=== PATIENT | female | born 1935 | race African-American/Black ===

== ENCOUNTER 2018-11-13 15:51 | Emergency (ER) | payer OTHER ==
[~2018-11-13] VITALS: Ht 149.9 cm; Wt 80.7 kg
--- OUTSIDE RECORDS SUMMARY | 2018-11-13 15:53 | XMS REPORT ---
Author Author Katharine Gallegos Organization [employer] Address Unknown Phone Unavailable Care Team Providers Care Architectural Job Captain Name Role Phone Katharine Gallegos CP Unavailable Allergies No Known Allergies Problems Problem Type Condition Code Onset Dates Condition Status Problem Coronary artery disease involving [place] coronary artery of [place] heart without angina pectoris I25.10 Active Problem Moderate persistent asthma without complication J45.40 Active Problem Obesity (BMI 30-39.9) E66.9 Active Problem Arthritis M19.90 Active Problem BMI 30.0-30.9,adult Z68.30 Active Problem Pain in left shoulder M25.512 Active Problem Essential hypertension I10 Active Problem Other chronic pain G89.29 Active Problem Pain in right shoulder M25.511 Active Medications Medication Code System Code Instructions Start Date End Date Status Dosage Levofloxacin [facility] 44890639533 500 MG Orally Once a day November 20, 2017 November 30, 2017 Active 1 tablet Ergocalciferol [facility] 51947357950 92089 UNIT Orally once a week November 20, 2017 December 20, 2017 Active 1 capsule Results No Known Results Summary Purpose [employer]ClinicalWorks Submission
--- OUTSIDE RECORDS SUMMARY | 2018-11-13 15:53 | XMS REPORT | Continuity of Care Document ---
Author Author Leana [facility] Interface Address Unknown Phone Unavailable Problems Problem Status Onset Date Classification Date Reported Comments Source Coronary artery disease involving [place] coronary artery of [place] heart without angina pectoris Active Problem 11/02/2018 [facility] Moderate persistent asthma without complication Active Problem 11/02/2018 [facility] Obesity Active Problem 11/02/2018 [facility] Arthritis Active Problem 11/02/2018 [facility] BMI 30.0-30.9,adult Active Problem 11/02/2018 [facility] Pain in left shoulder Active Problem 11/02/2018 [facility] Essential hypertension Active Problem 11/02/2018 [facility] Other chronic pain Active Problem 11/02/2018 [facility] Pain in right shoulder Active Problem 11/02/2018 [facility] Low vitamin D level Active Problem 11/02/2018 [facility] Other depression Active Problem 11/02/2018 [facility] Tinea pedis of both feet Active Problem 11/02/2018 [facility] Other fatigue Active Problem 11/02/2018 [facility] Environmental allergies Active Problem 11/02/2018 [facility] Mixed hyperlipidemia Active Problem 11/02/2018 [facility] Bronchitis Active Diagnosis 07/17/2018 [facility] Medications Medication Details Route Status Patient Instructions Ordering Provider Order Date Source Levocetirizine Dihydrochloride 1 tablet in the evening Orally Active 5 MG Orally daily [place] 11/25/2018 [facility] Ergocalciferol 1 capsule Orally Active 42220 UNIT Orally once a week [place] 11/01/2018 [facility] Meloxicam 1 tablet Orally Active 15 MG Orally daily [place] 08/27/2018 [facility] PredniSONE 1 tablet Orally Active 20 mg Orally Once a day [place] 07/16/2018 [facility] Levofloxacin 1 tablet Orally Active 500 mg Orally Once a day [facility] 07/16/2018 [facility] Benzonatate 1 capsule Orally Active 200 MG Orally three times a day (tid) as needed (prn) [place] 07/16/2018 [facility] Ergocalciferol 1 capsule Orally Active 31227 UNIT Orally once a week [place] 05/29/2018 [facility] Meloxicam 1 tablet Orally Active 15 MG Orally Once a day [facility] 04/19/2018 [facility] PredniSONE 1 tablet Orally Active 20 mg Orally Once a day [facility] 04/19/2018 [facility] Lisinopril 1 tablet Orally Active 20 mg Orally Once a day [facility] 12/28/2017 [facility] Meloxicam 1 tablet Orally Active 15 MG Orally Once a day [facility] 12/28/2017 [facility] Meloxicam 1 tablet Orally Active 15 MG Orally Once a day [facility] 12/27/2017 [facility] Levocetirizine Dihydrochloride 1 tablet in the evening Orally Active 5 MG Orally Once a day [facility] 11/27/2017 [facility] ProAir HFA 2 puffs as needed Inhalation Active 108 (90 Base) MCG/ACT Inhalation every 6 hrs as needed [facility] 11/27/2017 [facility] Duloxetine HCl 1 capsule Orally Active 30 mg Orally Once a day [facility] 11/27/2017 [facility] Montelukast Sodium 1 tablet in the evening Orally Active 10 mg Orally Once a day [facility] 11/27/2017 [facility] Gabapentin 1 capsule before bedtime Orally Active 300 MG Orally three times a day (tid) El11/27/2017 [facility] Levofloxacin 1 tablet Orally Active 500 MG Orally Once a day [facility] 11/20/2017 [facility] Ergocalciferol 1 capsule Orally Active 29543 UNIT Orally once a week [facility] 11/20/2017 [facility] Diclofenac Sodium 1 application to affected area Transdermal Active 1 % Transdermal Twice a day [facility] 11/16/2017 [facility] Montelukast Sodium 1 tablet in the evening Orally Active 10 mg Orally Once a day [facility] Diclofenac Sodium 1 application to affected area Transdermal Active 1 % Transdermal Twice a day [facility] Gabapentin 1 capsule before bedtime Orally Active 300 MG Orally once every night [facility] Amlodipine Besylate 1 tablet Orally Active 10 MG Orally Once a day [facility] Atorvastatin Calcium 1 tablet Orally Active 20 mg Orally Once a day [facility] Vincenzo Aspirin EC Low Dose 1 tablet Orally Active 81 MG Orally Once a day [facility] ProAir HFA 2 puffs as needed Inhalation Active 108 (90 Base) MCG/ACT Inhalation every 6 hrs as needed [facility] Lisinopril-Hydrochlorothiazide 1 tablet Orally Active 20-25 MG Orally Once a day [facility] Fluticasone Propionate 1 spray in each nostril Nasally Active 50 MCG/ACT Nasally Once a day [facility] Advair Diskus 1 puff Inhalation Active 250-50 MCG/DOSE Inhalation Twice a day [facility] Duloxetine HCl 1 capsule Orally Active 30 mg Orally Once a day [facility] Hydrocodone-Acetaminophen 1 tablet as needed Orally Active 5- 325 MG Orally every 6 hrs [facility] Carvedilol 1 tablet Orally Active 6.25 MG Orally twice a day (bid) [facility] NIFEdipine ER 1 tablet on an empty stomach Orally Active 60 MG Orally Once a day [facility] NIFEdipine ER 1 tablet on an empty stomach Orally Active 90 MG Orally Once a day [facility] Levocetirizine Dihydrochloride 1 tablet in the evening Orally Active 5 MG Orally daily [facility] Allergies, Adverse Reactions, Alerts Substance Category Reaction Severity Reaction type Status Date Reported Comments Source N.K.D.A. Adverse Reaction Info Not Available Adverse Reaction Active 10/30/2018 [facility] Immunizations Immunization Date Given Site Status Last Updated Comments Source Results Order Name Results Value Reference Range Date Interpretation Comments Source Vital Signs Vital Sign Value Date Comments Source Weight 178.2 10/30/2018 [facility] Height 59 10/30/2018 [facility] Temperature Oral (F) 98.1 F 10/30/2018 [facility] Heart Rate 99 10/30/2018 [facility] Diastolic (mm Hg) 98 10/30/2018 [facility] Systolic (mm Hg) 177 10/30/2018 [facility] Weight 176.6 07/16/2018 [facility] Height 59 07/16/2018 [facility] Temperature Oral (F) 97.9 F 07/16/2018 [facility] Heart Rate 91 07/16/2018 [facility] Diastolic (mm Hg) 76 07/16/2018 [facility] Systolic (mm Hg) 190 07/16/2018 [facility] Weight 169.9 05/29/2018 [facility] Height 59 05/29/2018 [facility] Temperature Oral (F) 97.2 F 05/29/2018 [facility] Heart Rate 83 05/29/2018 [facility] Diastolic (mm Hg) 72 05/29/2018 [facility] Systolic (mm Hg) 157 05/29/2018 [facility] Weight 164.3 04/19/2018 [facility] Height 59 04/19/2018 [facility] Temperature Oral (F) 97.9 F 04/19/2018 [facility] Heart Rate 92 04/19/2018 [facility] Diastolic (mm Hg) 74 04/19/2018 [facility] Systolic (mm Hg) 131 04/19/2018 [facility] Weight 169.3 12/28/2017 [facility] Height 59 12/28/2017 [facility] Temperature Oral (F) 98.3 F 12/28/2017 [facility] Heart Rate 68 12/28/2017 [facility] Diastolic (mm Hg) 72 12/28/2017 [facility] Systolic (mm Hg) 162 12/28/2017 [facility] Weight 166.9 11/27/2017 [facility] Height 59 11/27/2017 [facility] Temperature Oral (F) 98.7 F 11/27/2017 [facility] Heart Rate 73 11/27/2017 [facility] Diastolic (mm Hg) 82 11/27/2017 [facility] Systolic (mm Hg) 154 11/27/2017 [facility] Weight 168.1 11/16/2017 [facility] Height 59 11/16/2017 [facility] Temperature Oral (F) 97.0 F 11/16/2017 [facility] Heart Rate 84 11/16/2017 [facility] Diastolic (mm Hg) 82 11/16/2017 [facility] Systolic (mm Hg) 171 11/16/2017 [facility] Encounters Location Location Details Encounter Type Encounter Number Reason For Visit Attending Provider ADM Date DC Date Status Source Procedures Procedure Code Date Perfomer Comments Source
--- OUTSIDE RECORDS SUMMARY | 2018-11-13 15:53 | XMS REPORT ---
Author Author Katharine Gallegos Organization [employer] Address Unknown Phone Unavailable Care Team Providers Care Detention Officer Name Role Phone Katharine Gallegos CP Unavailable Allergies, Adverse Reactions, Alerts Substance Reaction Event Type N.K.D.A. Info Not Available Non Drug Allergy Problems Problem Type Condition Code Onset Dates Condition Status Assessment Essential hypertension I10 Active Problem Coronary artery disease involving [place] coronary artery of [place] heart without angina pectoris I25.10 Active Problem Moderate persistent asthma without complication J45.40 Active Problem Obesity (BMI 30-39.9) E66.9 Active Problem Arthritis M19.90 Active Problem BMI 30.0-30.9,adult Z68.30 Active Problem Pain in left shoulder M25.512 Active Problem Essential hypertension I10 Active Problem Other chronic pain G89.29 Active Problem Pain in right shoulder M25.511 Active Assessment BMI 30.0-30.9,adult Z68.30 Active Assessment Obesity (BMI 30-39.9) E66.9 Active Assessment Pain in right shoulder M25.511 Active Assessment Moderate persistent asthma without complication J45.40 Active Assessment Other chronic pain G89.29 Active Assessment Arthritis M19.90 Active Assessment Pain in left shoulder M25.512 Active Assessment Coronary artery disease involving [place] coronary artery of [place] heart without angina pectoris I25.10 Active Medications Medication Code System Code Instructions Start Date End Date Status Dosage Diclofenac Sodium [facility] [address]-52 1 % Transdermal Twice a day November 16, 2017 January 15, 2018 Active 1 application to affected area Vital Signs Date/Time: November 16, 2017 BMI 33.95 Index Weight 168.1 lbs Height 59 in Temperature 97.0 F Cardiac Monitoring Heart Rate 84 /min Blood Pressure Diastolic 82 mm Hg Blood Pressure Systolic 171 mm Hg Results No Known Results Summary Purpose eClinicalWorks Submission
--- OUTSIDE RECORDS SUMMARY | 2018-11-13 15:54 | XMS REPORT ---
Author Author Katharine Gallegos [facility] [employer] Address Unknown Phone Unavailable Care Team Providers Care Cistern Room Operator Name Role Phone Katharine Gallegos CP Unavailable Allergies, Adverse Reactions, Alerts Substance Reaction Event Type N.K.D.A. Info Not Available Non Drug Allergy Problems Problem Type Condition Code Onset Dates Condition Status Problem Arthritis M19.90 Active Problem BMI 30.0-30.9,adult Z68.30 Active Problem Obesity (BMI 30-39.9) E66.9 Active Problem Mixed hyperlipidemia E78.2 Active Assessment Other depression F32.89 Active Problem Other fatigue R53.83 Active Assessment Other fatigue R53.83 Active Assessment BMI 30.0-30.9,adult Z68.30 Active Problem Environmental allergies Z91.09 Active Problem Essential hypertension I10 Active Problem Coronary artery disease involving [place] coronary artery of [place] heart without angina pectoris I25.10 Active Problem Other depression F32.89 Active Problem Moderate persistent asthma without complication J45.40 Active Assessment Other chronic pain G89.29 Active Assessment Moderate persistent asthma without complication J45.40 Active Assessment Mixed hyperlipidemia E78.2 Active Assessment Environmental allergies Z91.09 Active Assessment Essential hypertension I10 Active Problem Pain in left shoulder M25.512 Active Assessment Arthritis M19.90 Active Problem Pain in right shoulder M25.511 Active Assessment Obesity (BMI 30-39.9) E66.9 Active Assessment Coronary artery disease involving [place] coronary artery of [place] heart without angina pectoris I25.10 Active Problem Other chronic pain G89.29 Active Medications Medication Code System Code Instructions Start Date End Date Status Dosage Atorvastatin Calcium [facility] 47015746651 20 mg Orally Once a day Active 1 tablet Carvedilol [facility] 51652335423 6.25 MG Orally twice a day (bid) Active 1 tablet Diclofenac Sodium [facility] [address]-68 1 % Transdermal Twice a day November 16, 2017 January 15, 2018 Active 1 application to affected area Levocetirizine Dihydrochloride [facility] 53637580730 5 MG Orally Once a day November 27, 2017 December 27, 2017 Active 1 tablet in the evening Meloxicam ND 32690208676 15 MG Orally Once a day December 27, 2017 Active 1 tablet Vincenzo Aspirin EC Low Dose ND 40103985394 81 MG Orally Once a day Active 1 tablet ProAir HFA [facility] 01610745727 108 (90 Base) MCG/ACT Inhalation every 6 hrs as needed November 27, 2017 Active 2 puffs as needed Duloxetine HCl [facility] [address]-68 30 mg Orally Once a day November 27, 2017 Active 1 capsule Fluticasone Propionate ND 37048110135 50 MCG/ACT Nasally Once a day Active 1 spray in each nostril Montelukast Sodium ND 98248809442 10 mg Orally Once a day November 27, 2017 Active 1 tablet in the evening Gabapentin ND 63789168317 300 MG Orally three times a day (tid) November 27, 2017 Active 1 capsule before bedtime Hydrocodone-Acetaminophen ND 89483486880 5-325 MG Orally every 6 hrs Active 1 tablet as needed Levofloxacin ND 52589656102 500 MG Orally Once a day November 20, 2017 November 30, 2017 Active 1 tablet Advair Diskus ND 43265869571 250-50 MCG/DOSE Inhalation Twice a day Active 1 puff Amlodipine Besylate ND 36227665518 10 MG Orally Once a day Active 1 tablet Lisinopril-Hydrochlorothiazide ND 08479487091 20-25 MG Orally Once a day Active 1 tablet Ergocalciferol [facility] 69447507335 43400 UNIT Orally once a week November 20, 2017 December 20, 2017 Active 1 capsule Vital Signs Date/Time: November 27, 2017 BMI 33.71 Index Weight 166.9 lbs Height 59 in Temperature 98.7 F Cardiac Monitoring Heart Rate 73 /min Blood Pressure Diastolic 82 mm Hg Blood Pressure Systolic 154 mm Hg Results No Known Results Summary Purpose eClinicalWorks Submission
--- OUTSIDE RECORDS SUMMARY | 2018-11-13 15:54 | XMS REPORT ---
Author Author Katharine Gallegos [facility] [employer] Address Unknown Phone Unavailable Care Team Providers Care Can Coverer Name Role Phone Katharine Gallegos Unavailable Allergies, Adverse Reactions, Alerts Substance Reaction Event Type N.K.D.A. Info Not Available Non Drug Allergy Problems Problem Type Condition Code Onset Dates Condition Status Assessment Obesity (BMI 30-39.9) E66.9 Active Assessment BMI 30.0-30.9,adult Z68.30 Active Assessment Low vitamin D level R79.89 Active Problem Other chronic pain G89.29 Active Assessment Other fatigue R53.83 Active Problem Arthritis M19.90 Active Assessment Other depression F32.89 Active Problem Obesity (BMI 30-39.9) E66.9 Active Problem Coronary artery disease involving [place] coronary artery of [place] heart without angina pectoris I25.10 Active Problem BMI 30.0-30.9,adult Z68.30 Active Problem Low vitamin D level R79.89 Active Problem Other depression F32.89 Active Assessment Other chronic pain G89.29 Active Assessment Environmental allergies Z91.09 Active Problem Tinea pedis of both feet B35.3 Active Assessment Mixed hyperlipidemia E78.2 Active Problem Other fatigue R53.83 Active Problem Essential hypertension I10 Active Problem Environmental allergies Z91.09 Active Problem Mixed hyperlipidemia E78.2 Active Assessment Coronary artery disease involving [place] coronary artery of [place] heart without angina pectoris I25.10 Active Assessment Essential hypertension I10 Active Assessment Moderate persistent asthma without complication J45.40 Active Assessment Arthritis M19.90 Active Problem Pain in left shoulder M25.512 Active Problem Pain in right shoulder M25.511 Active Problem Moderate persistent asthma without complication J45.40 Active Medications Medication Code System Code Instructions Start Date End Date Status Dosage NIFEdipine ER [facility] 93788393133 90 MG Orally Once a day Active 1 tablet on an empty stomach Levocetirizine Dihydrochloride ND 91768845810 5 MG Orally daily Active 1 tablet in the evening Duloxetine HCl [facility] 87643729573 30 mg Orally Once a day Active 1 capsule Gabapentin [facility] 94377814521 300 MG Orally once every night Active 1 capsule before bedtime Advair Diskus [facility] 46004903978 250-50 MCG/DOSE Inhalation Twice a day Active 1 puff Montelukast Sodium [facility] 02232080522 10 mg Orally Once a day Active 1 tablet in the evening Fluticasone Propionate [facility] 33023410056 50 MCG/ACT Nasally Once a day Active 1 spray in each nostril Hydrocodone-Acetaminophen [facility] 47939784759 5-325 MG Orally every 6 hrs Active 1 tablet as needed Vincenzo Aspirin EC Low Dose [facility] 89123990967 81 MG Orally Once a day Active 1 tablet Diclofenac Sodium [facility] [address]-75 1 % Transdermal Twice a day Active 1 application to affected area ProAir HFA [facility] 46090251689 108 (90 Base) MCG/ACT Inhalation every 6 hrs as needed Active 2 puffs as needed Atorvastatin Calcium [facility] 08879743744 20 mg Orally Once a day Active 1 tablet Vital Signs Date/Time: October 30, 2018 BMI 35.99 Index Weight 178.2 lbs Height 59 in Temperature 98.1 F Cardiac Monitoring Heart Rate 99 /min Blood Pressure Diastolic 98 mm Hg Blood Pressure Systolic 177 mm Hg Results No Known Results Summary Purpose eClinicalWorks Submission
--- OUTSIDE RECORDS SUMMARY | 2018-11-13 15:54 | XMS REPORT | Summary of Care ---
Author Author Zenobia Rodriguez Organization Unknown Address Unknown Phone Unavailable Care Team Providers Care Digital Commentator Name Role Phone MARCY RIOS M.D. Unavailable Unavailable DORY KONG M.D. 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 * Start : 07-May-2008 Active TraZODone HCl - 50 MG Oral Tablet TAKE 2 TABLET BEDTIME * Refills: 0 * Start : 07-May-2008 Active Sulfamethoxazole-TMP DS 800-160 MG TABS * Refills: 0 * Start : 07-May-2008 Active Furosemide 20 MG Oral Tablet TAKE 1 TABLET TWICE DAILY * Refills: 0 * Start : 07-May-2008 Active Metoprolol Tartrate 25 MG Oral Tablet TAKE 1 TABLET DAILY * Refills: 0 * Start : 07-May-2008 Active Actos 30 MG Oral Tablet TAKE 1 TABLET DAILY. * Refills: 0 * Start : 07-May-2008 Active Exforge 10-160 MG Oral Tablet TAKE 1 TABLET DAILY * Refills: 0 * Start : 07-May-2008 Active Cyclobenzaprine HCl - 10 MG Oral Tablet TAKE 1 TABLET 3 TIMES DAILY NEEDED. * Quantity: 30 Refills: 0 MARCY RIOS M.D. * Start : 07-May-2008 Active Cyclobenzaprine HCl - 10 MG Oral Tablet TAKE 1 TABLET AT BEDTIME NEEDED. * Quantity: 30 Refills: 1 MARCY RIOS M.D. * Start : 07-May-2008 Active Valtrex 1 GM Oral Tablet TAKE 1 TABLET 3 TIMES DAILY. * Quantity: 21 Refills: 0 GABRIEL AdamarisMARCY * Start : 07-May-2008 Active Hydrocodone-Acetaminophen 5-500 MG TABS TAKE 1-2 TABLETS EVERY 4-6 HOURS NEEDED FOR PAIN. * Quantity: 20 Refills: 0 LUANN AdamarisDORY * Start : 07-May-2008 Active Albuterol 90 MCG/ACT AERS * Quantity: 17 Refills: 0 * Start : 21-Dec-2007 Active Lipitor 20 MG Oral Tablet * Quantity: 30 Refills: 0 * Start : 21-Dec-2007 Active Meloxicam 15 MG Oral Tablet * Quantity: 30 Refills: 0 * Start : 21-Dec-2007 Active Lunesta 2 MG Oral Tablet * Quantity: 20 Refills: 0 * Start : 04-Mar-2008 Active Avapro 300 MG Oral Tablet * Quantity: 30 Refills: 0 * Start : 04-Mar-2008 Active Amoxicillin 500 MG Oral Capsule * Quantity: 30 Refills: 0 * Start : 29-Jan-2008 Active Advair HFA 115-21 MCG/ACT Inhalation Aerosol * Quantity: 12 Refills: 0 * Start : 27-Mar-2008 Active Metoprolol Succinate ER 25 MG Oral Tablet Extended Release 24 Hour * Quantity: 30 Refills: 0 * Start : 27-Mar-2008 Active Propoxyphene N-Acetaminophen 100-650 MG TABS * Quantity: 40 Refills: 0 * Start : 27-Mar-2008 Active Levaquin 500 MG Oral Tablet * Quantity: 7 Refills: 0 * Start : 01-May-2008 Active Zolpidem Tartrate 10 MG Oral Tablet * Quantity: 30 Refills: 0 * Start : 29-May-2008 Active Lyrica 50 MG Oral Capsule * Quantity: 60 Refills: 0 * Start : 29-May-2008 Active Lidoderm 5 % External Patch * Quantity: 30 Refills: 0 * Start : 29-May-2008 Active Allergies and Adverse Reactions Name Dates Details No Known Drug Allergies (Allergy) Status: Active Past Medical History Name Dates Details History of asthma (V12.69, Z87.09) Status: Resolved History of diabetes mellitus (V12.29, Z86.39) Status: Resolved History of heart attack (412, I25.2) Status: Resolved History of Heart disease (429.9, I51.9) Status: Resolved History of hypertension (V12.59, Z86.79) Status: Resolved History of stroke (V12.54, Z86.73) Status: Resolved Procedures Procedure Dates Details History of section Completed Immunization Name Dates Details Influenza on: 07-May-2008 Family History Name Dates Details Family history of diabetes mellitus (V18.0, Z83.3) Comments: Family History Status: Active Family history of Heart trouble (429.9, I51.9) Comments: Family History Status: Active Family history of hypertension (V17.49, Z82.49) Comments: Family History Status: Active Family history of arthritis (V17.7, Z82.61) Comments: Family History Status: Active Family history of malignant neoplasm (V16.9, Z80.9) Comments: Family History Status: Active Social History Name Dates Details Unknown if ever smoked Vital Signs Date Test Result Details No Known Vitals to report Results Date Description Value Details [id number] CT Spine lumbar wo contrast 98617 Spine lumbar wo contrast CT SEE NOTES Comments: Patient Name: FRANCESCA LIGHT BELLDOB: 1935; Age: 82 years y/o FemaleMR: [id number]: Spine lumbar wo contrast CT 03/19/2018 10:38 AM CDTOrdering Physician: DAVION Vigillinical Indication: M47.816 Spondylosis without myelopathy or radiculopathy,lumbar region - M47.816 Spondylosis without myelopathy or radiculopathy,lumbar region; Comparison: Plain films of the lumbar spine from 01/07/2018TECHNIQUE: Sequential trans-axial images were obtained with a multi- detectorhelical CT. Coronal and sagittal reconstructions were obtained.CT Radiation Dose DLP 1389.12 mGy-cmFINDINGS:ALIGNMENT AND GENERAL ASSESSMENT: There are 5 nonrib-bearing lumbar vertebralsegments. No acute compression fracture is seen. Grade 1 anterolisthesis of L4over L5 by 2 mm is noted. Minimal dextro scoliotic convex curvature of theupper lumbar spine is seen. No pars interarticularis defects are noted. Milddisc height loss from L3-L4 through L5- S1 is seen. Arterial calcifications arepresent.DISK SPACES AND SOFT TISSUES: MRI has higher sensitivity and specificity fordisc and soft tissue disease.T12-L1: The disc is unremarkable. Minimal facet arthrosis is seen. There is nospinal canal stenosis or neural foraminal narrowing.L1-L2: The disc is unremarkable. Minimal facet arthrosis is seen. There is nospinal canal stenosis or neural foraminal narrowing.L2-L3: Minimal annular disc bulge is seen. Mild facet arthrosis is noted, leftgreater than right. There is no spinal canal stenosis or neural foraminalnarrowing.L3-L4: Large asymmetric annular disc bulge is seen, eccentric to the left. Mildfacet arthrosis and ligamentum flavum hypertrophy is seen. There is mild tomoderate spinal canal stenosis with mild to moderate bilateral neural foraminalnarrowing, left greater than right.L4-L5: Large asymmetric annular disc bulge is seen, eccentric to the right.Severe facet arthrosis and ligamentum flavum hypertrophy is noted. There ismoderate spinal canal stenosis with moderate-severe bilateral neural foraminalnarrowing, right greater than left.L5-S1: Small annular disc bulge is seen. Mild to moderate facet arthrosis,right greater than left, is present. There is no spinal canal stenosis. Mildright neural foraminal narrowing is seen.Incidental note is made of mild cortical and trabecular thickening throughoutthe visualized left hemipelvis, compatible with Paget's disease.If there is further concern, CT myelogram or MRI of the lumbar spine may beperformed for complete assessment.IMPRESSION:1. Degenerative changes throughout the lumbar spine with mild to moderatespinal canal stenosis and mild to moderate bilateral neural f oraminalnarrowing, left greater than right, at L3-L4.2. L4-L5 moderate spinal canal stenosis with moderate-severe bilateral neuralforaminal narrowing, right greater than left.3. L5-S1 mild right neural foraminal narrowing.SL: [id number] by: Erik Sandyictated Date/time: 03/19/18 10:59Electronically Signed by: Erik Sandy MD 03/19/1811:04FINAL REPORT Plan of Care Name Dates Details Planned Observations Planned Goals not documented Planned Encounters Appointment; MAYO MCGINNIS M.D. On: 08-May-2018 13:00 Instructions Name Dates Details Instructions not documented Encounters Appointment; KAREN PANG M.D. Encounter Diagnosis: Problem not documented On: 28-Nov-2017 10:00 Appointment; KAREN PANG M.D. Encounter Diagnosis: Problem not documented On: 09-Jan-2018 10:00 Appointment; KAREN PANG M.D. Encounter Diagnosis: Problem not documented On: 13-Mar-2018 10:30
--- OUTSIDE RECORDS SUMMARY | 2018-11-13 15:54 | XMS REPORT ---
[facility] Address Unknown Phone Unavailable Care Team Providers Care Rn Manager Name Role Phone Unavailable Unavailable Payers Payer Name Policy Type Policy Number Effective Date Expiration Date Problems This patient has no known problems. Allergies, Adverse Reactions, Alerts Allergy Name Allergy Type Status Severity Reaction(s) Onset Date Inactive Date Treating Clinician Comments No Known Allergies DA Active U 2018-03-26 00:00:00 Medications This patient has no known medications.
--- OUTSIDE RECORDS SUMMARY | 2018-11-13 15:54 | XMS REPORT ---
Author Author Katharine Gallegos Organization [employer] Address Unknown Phone Unavailable Care Team Providers Care Insurance Associate Name Role Phone Katharine Gallegos CP Unavailable Allergies No Known Allergies Problems Problem Type Condition Code Onset Dates Condition Status Problem Obesity (BMI 30-39.9) E66.9 Active Problem Coronary artery disease involving [place] coronary artery of [place] heart without angina pectoris I25.10 Active Problem BMI 30.0-30.9,adult Z68.30 Active Problem Low vitamin D level R79.89 Active Problem Other depression F32.89 Active Problem Tinea pedis of both feet B35.3 Active Problem Other fatigue R53.83 Active Problem Essential hypertension I10 Active Problem Environmental allergies Z91.09 Active Problem Mixed hyperlipidemia E78.2 Active Problem Pain in left shoulder M25.512 Active Problem Pain in right shoulder M25.511 Active Problem Other chronic pain G89.29 Active Problem Moderate persistent asthma without complication J45.40 Active Problem Arthritis M19.90 Active Medications Medication Code System Code Instructions Start Date End Date Status Dosage Ergocalciferol [facility] [id number] UNIT Orally once a week November 01, 2018 January 30, 2019 Active 1 capsule Results No Known Results Summary Purpose [employer] Submission
--- OUTSIDE RECORDS SUMMARY | 2018-11-13 15:54 | XMS REPORT ---
Author Author Katharine Gallegos [facility] [employer] Address Unknown Phone Unavailable Care Team Providers Care Form Stripper Name Role Phone Katharine Gallegos CP Unavailable [...] I10 Active Problem Coronary artery disease involving [place] coronary artery of [place] heart without angina pectoris I25.10 Active Problem [...] E66.9 Active Assessment Coronary artery disease involving [place] coronary artery of [place] heart without angina pectoris I25.10 Active Problem Other chronic pain G89.29 Active Medications Medication Code System Code Instructions Start Date End Date Status Dosage Lisinopril ND 29324728016 20 mg Orally Once a day December 28, 2017 Active 1 tablet Montelukast Sodium ND 85293837552 10 mg Orally Once a day Active 1 tablet in the evening Meloxicam ND 73918620939 15 MG Orally Once a day Apr 19, 2018 May 19, 2018 Active 1 tablet Diclofenac Sodium [facility] [address]-33 1 % Transdermal Twice a day Active 1 application to affected area Gabapentin [facility] 67991632102 300 MG Orally once every night Active 1 capsule before bedtime Amlodipine Besylate [facility] 47557829405 10 MG Orally Once a day Active 1 tablet Atorvastatin Calcium [facility] 93834610016 20 mg Orally Once a day Active 1 tablet PredniSONE [facility] 70865195410 20 mg Orally Once a day Apr 19, 2018 Apr 24, 2018 Active 1 tablet Vincenzo Aspirin EC Low Dose [facility] 45863932721 81 MG Orally Once a day Active 1 tablet ProAir HFA [facility] 96451075801 108 (90 Base) MCG/ACT Inhalation every 6 hrs as needed Active 2 puffs as needed Lisinopril-Hydrochlorothiazide [facility] 88221365956 20-25 MG Orally Once a day Active 1 tablet Fluticasone Propionate [facility] 32541788844 50 MCG/ACT Nasally Once a day Active 1 spray in each nostril Advair Diskus [facility] 68236773456 250-50 MCG/DOSE Inhalation Twice a day Active 1 puff Duloxetine HCl [facility] 28069931258 30 mg Orally Once a day Active 1 capsule Hydrocodone-Acetaminophen [facility] 49149693272 5-325 MG Orally every 6 hrs Active 1 tablet as needed Carvedilol [facility] 76373738915 6.25 MG Orally twice a day (bid) Active 1 tablet NIFEdipine ER [facility] 68142437532 60 MG Orally Once a day Active 1 tablet on an empty stomach Vital Signs Date/Time: Apr 19, 2018 BMI 33.18 Index Weight 164.3 lbs Height 59 in Temperature 97.9 F Cardiac Monitoring Heart Rate 92 /min Blood Pressure Diastolic 74 mm Hg Blood Pressure Systolic 131 mm Hg Results No Known Results Summary Purpose eClinicalWorks Submission
--- OUTSIDE RECORDS SUMMARY | 2018-11-13 15:54 | XMS REPORT ---
Author Author Katharine Gallegos [facility] [employer] Address Unknown Phone Unavailable Care Team Providers Care Cover Creaser Name Role Phone Katharine Gallegos CP Unavailable Allergies, Adverse Reactions, Alerts Substance Reaction Event Type N.K.D.A. Info Not Available Non Drug Allergy Problems Problem Type Condition Code Onset Dates Condition Status Problem Obesity (BMI 30-39.9) E66.9 Active Problem Coronary artery disease involving [place] coronary artery of [place] heart without angina pectoris I25.10 Active Problem BMI 30.0-30.9,adult Z68.30 Active Problem Low vitamin D level R79.89 Active Problem Other depression F32.89 Active Problem Tinea pedis of both feet B35.3 Active Problem Other fatigue R53.83 Active Problem Essential hypertension I10 Active Problem Environmental allergies Z91.09 Active Problem Mixed hyperlipidemia E78.2 Active Assessment Environmental allergies Z91.09 Active Assessment Bronchitis J40 Active Assessment Moderate persistent asthma without complication J45.40 Active Assessment Essential hypertension I10 Active Problem Pain in left shoulder M25.512 Active Problem Pain in right shoulder M25.511 Active Problem Other chronic pain G89.29 Active Problem Moderate persistent asthma without complication J45.40 Active Problem Arthritis M19.90 Active Medications Medication Code System Code Instructions Start Date End Date Status Dosage PredniSONE [facility] 83465487222 20 mg Orally Once a day Jul 16, 2018 Jul 23, 2018 Active 1 tablet Atorvastatin Calcium ND 73633999748 20 mg Orally Once a day Active 1 tablet Diclofenac Sodium [facility] [address]-40 1 % Transdermal Twice a day Active 1 application to affected area Meloxicam ND 32553715882 15 MG Orally daily Aug 27, 2018 Active 1 tablet Vincenzo Aspirin EC Low Dose ND 05513499088 81 MG Orally Once a day Active 1 tablet Montelukast Sodium ND 76415591886 10 mg Orally Once a day Active 1 tablet in the evening Advair Diskus [facility] 39258183723 250-50 MCG/DOSE Inhalation Twice a day Active 1 puff NIFEdipine ER ND 96414656996 60 MG Orally Once a day Active 1 tablet on an empty stomach Gabapentin [facility] 84226176360 300 MG Orally once every night Active 1 capsule before bedtime Ergocalciferol [facility] 50288399226 66654 UNIT Orally once a week May 29, 2018 Aug 27, 2018 Active 1 capsule Levofloxacin [facility] 69569890229 500 mg Orally Once a day Jul 16, 2018 Jul 23, 2018 Active 1 tablet Duloxetine HCl [facility] 42726241541 30 mg Orally Once a day Active 1 capsule Levocetirizine Dihydrochloride [facility] 42804849840 5 MG Orally daily November 25, 2018 Active 1 tablet in the evening ProAir HFA [facility] 01771028579 108 (90 Base) MCG/ACT Inhalation every 6 hrs as needed Active 2 puffs as needed Benzonatate [facility] 20584506534 200 MG Orally three times a day (tid) as needed (prn) Jul 16, 2018 Jul 26, 2018 Active 1 capsule Fluticasone Propionate [facility] 19386277945 50 MCG/ACT Nasally Once a day Active 1 spray in each nostril Hydrocodone-Acetaminophen [facility] 47066425314 5-325 MG Orally every 6 hrs Active 1 tablet as needed Vital Signs Date/Time: Jul 16, 2018 BMI 35.66 Index Weight 176.6 lbs Height 59 in Temperature 97.9 F Cardiac Monitoring Heart Rate 91 /min Blood Pressure Diastolic 76 mm Hg Blood Pressure Systolic 190 mm Hg Results No Known Results Summary Purpose [employer]ClinicalWorks Submission
--- OUTSIDE RECORDS SUMMARY | 2018-11-13 15:54 | XMS REPORT ---
Author Author Katharine Gallegos [facility] [employer] Address Unknown Phone Unavailable Care Team Providers Care Form Setter Name Role Phone Katharine Gallegos CP Unavailable [...] I10 Active Problem Coronary artery disease involving [place] coronary artery of [place] heart without angina pectoris I25.10 Active Problem [...] E66.9 Active Assessment Coronary artery disease involving [place] coronary artery of [place] heart without angina pectoris I25.10 Active Problem Other chronic pain G89.29 Active Medications Medication Code System Code Instructions Start Date End Date Status Dosage Advair Diskus [facility] 27641831519 250-50 MCG/DOSE Inhalation Twice a day Active 1 puff Meloxicam ND 53588972807 15 MG Orally Once a day December 27, 2017 Active 1 tablet Lisinopril ND 47614586441 20 mg Orally Once a day December 28, 2017 Active 1 tablet Montelukast Sodium ND 44426786491 10 mg Orally Once a day Active 1 tablet in the evening Amlodipine Besylate ND 85751129573 10 MG Orally Once a day Active 1 tablet Hydrocodone-Acetaminophen [facility] 52478215484 5-325 MG Orally every 6 hrs Active 1 tablet as needed Carvedilol [facility] 36341300100 6.25 MG Orally twice a day (bid) Active 1 tablet Lisinopril-Hydrochlorothiazide [facility] 44042411571 20-25 MG Orally Once a day Active 1 tablet Fluticasone Propionate [facility] 27731218283 50 MCG/ACT Nasally Once a day Active 1 spray in each nostril ProAir HFA [facility] 26029039481 108 (90 Base) MCG/ACT Inhalation every 6 hrs as needed Active 2 puffs as needed Gabapentin [facility] 39505277000 300 MG Orally three times a day (tid) Active 1 capsule before bedtime Levocetirizine Dihydrochloride [facility] 64495873384 5 MG Orally Once a day November 27, 2017 December 27, 2017 Active 1 tablet in the evening Atorvastatin Calcium [facility] 41153498229 20 mg Orally Once a day Active 1 tablet Vincenzo Aspirin EC Low Dose [facility] 37676442506 81 MG Orally Once a day Active 1 tablet Meloxicam [facility] 35757517350 15 MG Orally Once a day December 28, 2017 January 27, 2018 Active 1 tablet Diclofenac Sodium [facility] [address]-01 1 % Transdermal Twice a day Active 1 application to affected area Duloxetine HCl [facility] 55589889588 30 mg Orally Once a day Active 1 capsule Vital Signs Date/Time: December 28, 2017 BMI 34.19 Index Weight 169.3 lbs Height 59 in Temperature 98.3 F Cardiac Monitoring Heart Rate 68 /min Blood Pressure Diastolic 72 mm Hg Blood Pressure Systolic 162 mm Hg Results No Known Results Summary Purpose eClinicalWorks Submission
--- OUTSIDE RECORDS SUMMARY | 2018-11-13 15:54 | XMS REPORT ---
Author Author Katharine Gallegos [facility] eClinicalWorks Address Unknown Phone Unavailable Care Team Providers Care Nursing Consultant Name Role Phone Katharine Gallegos CP Unavailable Allergies, Adverse Reactions, Alerts Substance Reaction Event Type N.K.D.A. Info Not Available Non Drug Allergy Problems Problem Type Condition Code Onset Dates Condition Status Assessment Obesity (BMI 30-39.9) E66.9 Active Assessment BMI 30.0-30.9,adult Z68.30 Active Assessment Low vitamin D level R79.89 Active Assessment Tinea pedis of both feet B35.3 Active Problem Other chronic pain G89.29 Active Assessment Other fatigue R53.83 Active Problem Arthritis M19.90 Active Assessment Other depression F32.89 Active Problem Obesity (BMI 30-39.9) E66.9 Active Problem Coronary artery disease involving [place] coronary artery of [place] heart without angina pectoris I25.10 Active Problem [...] E78.2 Active Assessment Coronary artery disease involving [place] coronary artery of [place] heart without angina pectoris I25.10 Active Assessment Essential hypertension I10 Active Assessment Moderate persistent asthma without complication J45.40 Active Assessment Arthritis M19.90 Active Problem Pain in left shoulder M25.512 Active Problem Pain in right shoulder M25.511 Active Problem Moderate persistent asthma without complication J45.40 Active Medications Medication Code System Code Instructions Start Date End Date Status Dosage Fluticasone Propionate [facility] 96176834165 50 MCG/ACT Nasally Once a day Active 1 spray in each nostril Diclofenac Sodium [facility] [address]-23 1 % Transdermal Twice a day Active 1 application to affected area Duloxetine HCl [facility] 12391409203 30 mg Orally Once a day Active 1 capsule Vincenzo Aspirin EC Low Dose ND 49116859612 81 MG Orally Once a day Active 1 tablet NIFEdipine ER ND 59269716645 60 MG Orally Once a day Active 1 tablet on an empty stomach Ergocalciferol [facility] 82316225176 34367 UNIT Orally once a week May 29, 2018 Aug 27, 2018 Active 1 capsule Atorvastatin Calcium ND 68268276621 20 mg Orally Once a day Active 1 tablet Advair Diskus [facility] 98660257058 250-50 MCG/DOSE Inhalation Twice a day Active 1 puff ProAir HFA [facility] 63481427468 108 (90 Base) MCG/ACT Inhalation every 6 hrs as needed Active 2 puffs as needed Meloxicam [facility] 85039225745 15 MG Orally daily Aug 27, 2018 Active 1 tablet Hydrocodone-Acetaminophen [facility] 64495622535 5-325 MG Orally every 6 hrs Active 1 tablet as needed Levocetirizine Dihydrochloride [facility] 28580869601 5 MG Orally daily November 25, 2018 Active 1 tablet in the evening Montelukast Sodium [facility] 97780220794 10 mg Orally Once a day Active 1 tablet in the evening Gabapentin [facility] 40630071359 300 MG Orally once every night Active 1 capsule before bedtime Vital Signs Date/Time: May 29, 2018 BMI 34.31 Index Weight 169.9 lbs Height 59 in Temperature 97.2 F Cardiac Monitoring Heart Rate 83 /min Blood Pressure Diastolic 72 mm Hg Blood Pressure Systolic 157 mm Hg Results No Known Results Summary Purpose eClinicalWorks Submission
[2018-11-13 17:43] LABS: BASOPHILS % 0.2 % (0.0-1.0); EOSINOPHILS # (AUTO) 0.1 (0.0-0.4); EOSINOPHILS % 0.6 % (0.0-6.0); HEMATOCRIT 32.4 % (34.2-44.1); HEMOGLOBIN 10.9 g/dL (12.0-16.0); LYMPHOCYTES # (AUTO) 2.1 (1.0-3.2); LYMPHOCYTES % 19.3 % (18.0-39.1); MEAN CORPUSCULAR HGB CONC 33.6 g/dL (31-35); MEAN CORPUSCULAR VOLUME 83.3 fL (81-99); MONOCYTES # (AUTO) 1.3 (0.2-0.8); MONOCYTES % 11.8 % (4.4-11.3); NEUTROPHILS # (AUTO) 7.4 (2.1-6.9); NEUTROPHILS % 67.7 % (38.7-80.0); PLATELET COUNT 310 x10e3/uL (140-360); RED BLOOD COUNT 3.89 x10e6/uL (3.6-5.1); RED CELL DISTRIBUTION WIDTH 14.6 % (11.7-14.4)
[2018-11-13 17:46] LABS: INR 0.92; PROTHROMBIN TIME 12.8 seconds (11.9-14.5)
[2018-11-13 17:46] LABS: CLARITY,URINE SL CLOUDY (CLEAR); COLOR,URINE YELLOW (YELLOW)
[2018-11-13 17:47] LABS: BILIRUBIN,URINE NEGATIVE (NEGATIVE); KETONES,URINE NEGATIVE (NEGATIVE); LEUKOCYTE ESTERASE ,URINE TRACE (NEGATIVE); NITRITE,URINE NEGATIVE (NEGATIVE); PROTEIN,URINE DIPSTICK 2+ (NEGATIVE); URINE UROBILINOGEN 1 mg/dL (0.2 - 1)
[2018-11-13] MEDS ORDERED: ASPIR 8181 MG PO (17:47)
[2018-11-13] MEDS ORDERED: MONTELUKAST SOD10 MG PO (17:47)
[2018-11-13 17:48] LABS: PARTIAL THROMBOPLASTIN TIME 43.7 seconds (23.8-35.5)
[2018-11-13] MEDS ORDERED: ATORVASTATIN CA20 MG PO (17:48)
[2018-11-13] MEDS ORDERED: PROAIR HFA INH8.5 GM (17:48)
[2018-11-13] MEDS ORDERED: ADVAIR 250-501 EACH (17:48)
[2018-11-13] MEDS ORDERED: CYCLOBENZAPRINE10 MG PO (17:49)
[2018-11-13] MEDS ORDERED: GABAPENTIN300 MG PO (17:49)
[2018-11-13] MEDS ORDERED: NIFEDIPINE ER90 MG PO (17:50)
[2018-11-13] MEDS ORDERED: CYMBALTA30 MG PO (17:50)
[2018-11-13] MEDS ORDERED: LEVOCETIRIZINE D5 MG PO (17:52)
[2018-11-13 17:54] LABS: ALBUMIN 3.1 g/dL (3.5-5.0); ALBUMIN/GLOBULIN RATIO 0.6 (0.8-2.0); ANION GAP 13.7 mmol/L (8-16); CALCIUM 10.6 mg/dL (8.4-10.2); CREATININE, SERUM 1.17 mg/dL (0.57-1.11); POTASSIUM 3.7 mmol/L (3.5-5.1)
[2018-11-13 18:00] LABS: CREATINE KINASE MB 0.5 ng/mL (0-5.0)
[2018-11-13 18:07] LABS: AMORPHOUS SEDIMENT,URINE FEW (FEW); BACTERIA,URINE MODERATE /HPF; EPITHELIAL CELLS,URINE FEW /LPF; MUCUS,URINE FEW (RARE)
--- NOTE | 2018-11-13 18:20 | Diagnostic Imaging Report ---
EXAMINATION: CHEST SINGLE (PORTABLE) INDICATION: ^CHEST PAIN ^[id number] ^1740 ^Y COMPARISON: None FINDINGS: AP view TUBES and LINES: None. LUNGS: Limited by body habitus and low lung volumes. Mild central vascular congestion no definite focal consolidation. PLEURA: No significant pleural effusion or pneumothorax. HEART AND MEDIASTINUM: The cardiomediastinal silhouette is prominent on this AP view.. BONES AND SOFT TISSUES: No acute osseous lesion. Soft tissues are unremarkable. UPPER ABDOMEN: No free air under the diaphragm. IMPRESSION: Prominent cardiomediastinal silhouette and mild central vascular congestion, accentuated by low lung volumes. No definite focal consolidation. Signed by: Dr. Marek Azevedo MD on 11/13/2018 6:17 PM
[2018-11-13] MEDS ORDERED: NIFEDIPINE 10 MG CAP PO STA (19:00)
--- NOTE | 2018-11-13 19:06 | NUR ---
Report given to Per caustic cresylate shift superintendent nurse. Pt is in no acute distress at this time.
[2018-11-13 20:31] VITALS: BP 183/77
== END 2018-11-13 20:43 | disposition home or self-care (01) ==
LOC: ER 15:51
DX: M54.2 Cervicalgia (principal); S16.1XXA Strain of muscle, fascia and tendon at neck level, initial encounter; M43.6 Torticollis; I10 Essential (primary) hypertension; E78.5 Hyperlipidemia, unspecified; J45.909 Unspecified asthma, uncomplicated; R74.0 Nonspecific elevation of levels of transaminase and lactic acid dehydrogenase [LDH]
CPT/HCPCS: 36415; 71045; 80053; 81001; 82550; 82553; 83880; 84484; 85025; 85610; 85730; 93005; 99283

== ENCOUNTER 2021-03-15 17:01 | Emergency (ER) | payer MEDICARE, OTHER ==
[~2021-03-15] VITALS: Ht 149.9 cm; Wt 84.8 kg
[~2021-03-15 17:01] MED LIST: ADVAIR 250-501 EACH; ASPIR 8181 MG PO; ATORVASTATIN CA20 MG PO; CYCLOBENZAPRINE10 MG PO; CYMBALTA30 MG PO; GABAPENTIN300 MG PO; LEVOCETIRIZINE D5 MG PO; MONTELUKAST SOD10 MG PO; NIFEDIPINE ER90 MG PO; PROAIR HFA INH8.5 GM
[2021-03-15] MEDS ORDERED: NIFEDIPINE ER30 M1 PO (17:45)
[2021-03-15] MEDS ORDERED: HYDRALAZINE HC100 MG PO (17:46)
== END 2021-03-15 17:50 | disposition home or self-care (01) ==
LOC: FSED 17:30
DX: I10 Essential (primary) hypertension (principal); E78.5 Hyperlipidemia, unspecified; R60.9 Edema, unspecified; N18.9 Chronic kidney disease, unspecified; J45.909 Unspecified asthma, uncomplicated; Z95.5 Presence of coronary angioplasty implant and graft
CPT/HCPCS: 99282

== ENCOUNTER 2022-03-11 12:31 | Inpatient (IN) | payer MEDICARE, OTHER ==
[~2022-03-11] VITALS: Ht 149.9 cm; Wt 136.1 kg
[~2022-03-11 12:31] MED LIST changes: +HYDRALAZINE HC100 MG PO; +NIFEDIPINE ER30 M1 PO
[2022-03-11] MEDS ORDERED: SODIUM CHLORIDE 0.9% 500ML 500 ML IV STA (13:00)
[2022-03-11] MEDS ORDERED: FAMOTIDINE 20 MG/2 ML VIAL IV ONE ×2 (13:00→13:57)
[2022-03-11] MEDS ORDERED: ONDANSETRON HCL INJ 2MG/ML 2ML 2 MG/ML VIAL IV ONE (13:00)
[2022-03-11] MEDS ORDERED: HYDRALAZINE HCL 20 MG/ML VIAL IV ONE (13:00)
[2022-03-11] MEDS ORDERED: ONDANSETRON HCL INJ 2MG/ML 2ML 2 MG/ML VIAL ONE (13:56)
[2022-03-11] MEDS ORDERED: SODIUM CHLORIDE 0.9% 500ML 500 ML ONE (13:56)
[2022-03-11] MEDS ORDERED: HYDRALAZINE HCL 20 MG/ML VIAL IV PRN (14:15)
[2022-03-11] MEDS ORDERED: ONDANSETRON HCL INJ 2MG/ML 2ML 2 MG/ML VIAL IV PRN ×2 (14:15)
[2022-03-11] MEDS ORDERED: ACETAMINOPHEN 325 MG TAB PO PRN (14:15)
[2022-03-11] MEDS ORDERED: ASPIRIN 81 MG CHEW TAB PO ONE (14:15)
[2022-03-11] MEDS ORDERED: DIPHENHYDRAMINE HCL INJ 50 MG/ML VIAL IV PRN (14:15)
[2022-03-11] MEDS: LACTATED RINGER'S 1,000 ML IV SCH (15:15)
[2022-03-11] MEDS ORDERED: HYDRALAZINE HCL 20 MG/ML VIAL ONE (15:18)
[2022-03-11 15:50] VITALS: BP 167/51
[2022-03-11 16:27] VITALS: BP 167/51
[2022-03-11] MEDS: FAMOTIDINE 20 MG/2 ML VIAL IV SCH (18:00)
[2022-03-11 18:38] LABS: CREATINE KINASE 109 IU/L (29-168)
[2022-03-11] MEDS: ALBUTEROL SULFATE HFA 8GM INHALATION AEROSOL INH SCH (19:00)
[2022-03-11 20:00] VITALS: BP 133/96
[2022-03-11] MEDS: MONTELUKAST SODIUM 10 MG TAB PO SCH (22:28)
[2022-03-11] MEDS: ATORVASTATIN 20 MG TAB PO SCH (22:28)
[2022-03-11] MEDS: HYDRALAZINE HCL 100 MG TABLET PO SCH (22:28)
[2022-03-11] MEDS: GABAPENTIN 300 MG CAP PO SCH (22:28)
[2022-03-12] VITALS (9 sets, daily range): BP systolic 150–192; BP diastolic 50–89
[2022-03-12] MEDS: ALBUTEROL SULFATE HFA 8GM INHALATION AEROSOL INH SCH ×4 (01:00→19:00)
[2022-03-12 02:20] LABS: CREATINE KINASE MB 0.8 ng/mL (0-5.0)
[2022-03-12] MEDS: LACTATED RINGER'S 1,000 ML IV SCH (05:25)
[2022-03-12] MEDS: SALMETEROL/FLUTICASONE 250/50 INH SCH (05:27)
[2022-03-12 05:53] LABS: BASOPHILS % 0.5 % (0.0-1.0); EOSINOPHILS # (AUTO) 0.1 (0.0-0.4); EOSINOPHILS % 1.1 % (0.0-6.0); HEMATOCRIT 26.1 % (34.2-44.1); HEMOGLOBIN 8.9 g/dL (12.0-16.0); LYMPHOCYTES # (AUTO) 2.3 (1.0-3.2); LYMPHOCYTES % 37.2 % (18.0-39.1); MEAN CORPUSCULAR HEMOGLOBIN 28.8 pg (28-32); MEAN CORPUSCULAR HGB CONC 34.1 g/dL (31-35); MEAN CORPUSCULAR VOLUME 84.5 fL (81-99); MONOCYTES # (AUTO) 0.5 (0.2-0.8); MONOCYTES % 7.2 % (4.4-11.3); NEUTROPHILS # (AUTO) 3.4 (2.1-6.9); NEUTROPHILS % 53.5 % (38.7-80.0); PLATELET COUNT 209 x10e3/uL (140-360); RED BLOOD COUNT 3.09 x10e6/uL (3.6-5.1); RED CELL DISTRIBUTION WIDTH 14.1 % (11.7-14.4)
[2022-03-12 06:24] LABS: ALBUMIN 2.8 g/dL (3.5-5.0); ANION GAP 12.4 mmol/L (8-16); CALCIUM 8.4 mg/dL (8.4-10.2); CREATININE, SERUM 1.94 mg/dL (0.57-1.11); POTASSIUM 4.4 mmol/L (3.5-5.1)
[2022-03-12] MEDS ORDERED: NON-FORMULARY MEDICATION (Levocetirizine Dihydrochloride 5 MG) PO SCH (09:00)
[2022-03-12] MEDS: ZINC SULFATE 50 MG CAP PO SCH (09:19)
[2022-03-12] MEDS: ASCORBIC ACID 500 MG TAB PO SCH ×2 (09:19→16:09)
[2022-03-12] MEDS: DEXAMETHASONE SOD PHOS INJ 4 MG/ML SDV IV SCH (09:19)
[2022-03-12] MEDS: HYDRALAZINE HCL 100 MG TABLET PO SCH ×2 (09:20→16:09)
[2022-03-12] MEDS: FAMOTIDINE 20 MG/2 ML VIAL IV SCH ×2 (09:20→16:10)
[2022-03-12] MEDS: ASPIRIN 81 MG CHEW TAB PO SCH (09:20)
[2022-03-12] MEDS: NIFEDIPINE CR 30 MG TAB PO SCH (09:21)
[2022-03-12] MEDS: LORATADINE 10 MG TAB PO SCH (09:21)
[2022-03-12] MEDS: DULOXETINE HCL 30 MG DELAYED RELEASE PO SCH (09:21)
[2022-03-12] MEDS ORDERED: GUAIFENESIN/DEXTROMETHORPHAN LIQD 5 ML UDC NG PRN (12:00)
[2022-03-12] MEDS ORDERED: DEXTROSE 5%/0.9% SOD CHL 1,000 ML IV ONE (12:00)
[2022-03-12] MEDS: ENOXAPARIN SOD INJ 40 MG/0.4 ML SYR SC SCH (17:00)
[2022-03-12] MEDS ORDERED: CARVEDILOL 3.125 MG TAB PO SCH (17:00)
[2022-03-12] MEDS: GABAPENTIN 300 MG CAP PO SCH (20:22)
[2022-03-12] MEDS: ATORVASTATIN 20 MG TAB PO SCH (20:22)
[2022-03-12] MEDS: MONTELUKAST SODIUM 10 MG TAB PO SCH (20:22)
[2022-03-13] VITALS (8 sets, daily range): BP systolic 164–202; BP diastolic 56–79
[2022-03-13] MEDS: HYDRALAZINE HCL 20 MG/ML VIAL IV PRN ×3 (00:26→23:54)
[2022-03-13] MEDS: ALBUTEROL SULFATE HFA 8GM INHALATION AEROSOL INH SCH ×4 (01:00→18:54)
[2022-03-13] MEDS: ACETAMINOPHEN 325 MG TAB PO PRN (05:30)
[2022-03-13] MEDS: SALMETEROL/FLUTICASONE 250/50 INH SCH (06:00)
[2022-03-13 06:34] LABS: BASOPHILS % 0.1 % (0.0-1.0); EOSINOPHILS % 0.1 % (0.0-6.0); HEMATOCRIT 29.1 % (34.2-44.1); LYMPHOCYTES # (AUTO) 2.5 (1.0-3.2); LYMPHOCYTES % 25.5 % (18.0-39.1); MEAN CORPUSCULAR HEMOGLOBIN 29.1 pg (28-32); MEAN CORPUSCULAR HGB CONC 34.4 g/dL (31-35); MEAN CORPUSCULAR VOLUME 84.6 fL (81-99); MONOCYTES # (AUTO) 0.6 (0.2-0.8); MONOCYTES % 6.4 % (4.4-11.3); NEUTROPHILS # (AUTO) 6.6 (2.1-6.9); NEUTROPHILS % 67.5 % (38.7-80.0); PLATELET COUNT 251 x10e3/uL (140-360); RED BLOOD COUNT 3.44 x10e6/uL (3.6-5.1)
[2022-03-13 07:22] LABS: CALCIUM 8.9 mg/dL (8.4-10.2); CREATININE, SERUM 1.94 mg/dL (0.57-1.11)
[2022-03-13] MEDS: DEXAMETHASONE SOD PHOS INJ 4 MG/ML SDV IV SCH (09:00)
[2022-03-13] MEDS: FAMOTIDINE 20 MG/2 ML VIAL IV SCH ×2 (09:00→16:16)
[2022-03-13] MEDS: CARVEDILOL 3.125 MG TAB PO SCH ×2 (09:00→16:16)
[2022-03-13] MEDS: ZINC SULFATE 50 MG CAP PO SCH (09:46)
[2022-03-13] MEDS: LORATADINE 10 MG TAB PO SCH (09:46)
[2022-03-13] MEDS: NIFEDIPINE CR 30 MG TAB PO SCH (09:46)
[2022-03-13] MEDS: ASCORBIC ACID 500 MG TAB PO SCH ×2 (09:47→16:17)
[2022-03-13] MEDS: HYDRALAZINE HCL 100 MG TABLET PO SCH ×2 (09:47→16:16)
[2022-03-13] MEDS: ASPIRIN 81 MG CHEW TAB PO SCH (09:47)
[2022-03-13] MEDS: DULOXETINE HCL 30 MG DELAYED RELEASE PO SCH (09:51)
[2022-03-13] MEDS: CHLORTHALIDONE 25 MG TAB PO SCH (12:11)
[2022-03-13] MEDS: ISOSORBIDE DINITRATE 20 MG TAB PO PRN (12:11)
[2022-03-13] MEDS: ENOXAPARIN SOD INJ 40 MG/0.4 ML SYR SC SCH (17:12)
[2022-03-13] MEDS: ATORVASTATIN 20 MG TAB PO SCH (21:37)
[2022-03-13] MEDS: GABAPENTIN 300 MG CAP PO SCH (21:37)
[2022-03-13] MEDS: MONTELUKAST SODIUM 10 MG TAB PO SCH (21:37)
[2022-03-14] VITALS (9 sets, daily range): BP systolic 160–199; BP diastolic 50–75
[2022-03-14] MEDS: ALBUTEROL SULFATE HFA 8GM INHALATION AEROSOL INH SCH ×4 (01:00→21:00)
[2022-03-14] MEDS: HYDRALAZINE HCL 20 MG/ML VIAL IV PRN (05:13)
[2022-03-14 05:50] LABS: BASOPHILS % 0.1 % (0.0-1.0); HEMATOCRIT 27.1 % (34.2-44.1); HEMOGLOBIN 9.5 g/dL (12.0-16.0); LYMPHOCYTES # (AUTO) 2.1 (1.0-3.2); LYMPHOCYTES % 20.2 % (18.0-39.1); MEAN CORPUSCULAR HEMOGLOBIN 28.9 pg (28-32); MEAN CORPUSCULAR HGB CONC 35.1 g/dL (31-35); MEAN CORPUSCULAR VOLUME 82.4 fL (81-99); MONOCYTES # (AUTO) 0.4 (0.2-0.8); MONOCYTES % 3.9 % (4.4-11.3); NEUTROPHILS # (AUTO) 7.9 (2.1-6.9); NEUTROPHILS % 75.2 % (38.7-80.0); PLATELET COUNT 241 x10e3/uL (140-360); RED BLOOD COUNT 3.29 x10e6/uL (3.6-5.1); RED CELL DISTRIBUTION WIDTH 14.1 % (11.7-14.4)
[2022-03-14 06:12] LABS: CREATININE, SERUM 2.15 mg/dL (0.57-1.11)
[2022-03-14] MEDS: SALMETEROL/FLUTICASONE 250/50 INH SCH (06:50)
[2022-03-14] MEDS: HYDRALAZINE HCL 100 MG TABLET PO SCH ×2 (10:05→17:30)
[2022-03-14] MEDS: ASCORBIC ACID 500 MG TAB PO SCH ×2 (10:05→17:30)
[2022-03-14] MEDS: LIDOCAINE 4% PATCH TP SCH (10:05)
[2022-03-14] MEDS: ASPIRIN 81 MG CHEW TAB PO SCH (10:06)
[2022-03-14] MEDS: DULOXETINE HCL 30 MG DELAYED RELEASE PO SCH (10:06)
[2022-03-14] MEDS: FAMOTIDINE 20 MG/2 ML VIAL IV SCH ×2 (10:06→17:30)
[2022-03-14] MEDS: ZINC SULFATE 50 MG CAP PO SCH (10:07)
[2022-03-14] MEDS: LORATADINE 10 MG TAB PO SCH (10:07)
[2022-03-14] MEDS: AZITHROMYCIN 250 MG TAB PO SCH (10:07)
[2022-03-14] MEDS: CHLORTHALIDONE 25 MG TAB PO SCH (10:07)
[2022-03-14] MEDS: CARVEDILOL 3.125 MG TAB PO SCH ×2 (10:07→17:29)
[2022-03-14] MEDS: NIFEDIPINE CR 30 MG TAB PO SCH (10:08)
[2022-03-14] MEDS: DEXAMETHASONE 4 MG TAB PO SCH (10:08)
[2022-03-14] MEDS: BENZONATATE 100 MG CAP PO SCH ×2 (13:48→22:28)
[2022-03-14] MEDS: ISOSORBIDE DINITRATE 20 MG TAB PO PRN (13:49)
[2022-03-14] MEDS: ENOXAPARIN SOD INJ 40 MG/0.4 ML SYR SC SCH (17:29)
[2022-03-14] MEDS ORDERED: CLONIDINE HCL 0.1 MG/24 HR 1 EA PATCH TOP SCH (22:00)
[2022-03-14] MEDS: ATORVASTATIN 20 MG TAB PO SCH (22:28)
[2022-03-14] MEDS: GABAPENTIN 300 MG CAP PO SCH (22:28)
[2022-03-14] MEDS: MONTELUKAST SODIUM 10 MG TAB PO SCH (22:28)
[2022-03-15] VITALS (8 sets, daily range): BP systolic 154–197; BP diastolic 62–71
[2022-03-15] MEDS: HYDRALAZINE HCL 20 MG/ML VIAL IV PRN (00:42)
[2022-03-15] MEDS: ACETAMINOPHEN 325 MG TAB PO PRN (00:43)
[2022-03-15] MEDS: ALBUTEROL SULFATE HFA 8GM INHALATION AEROSOL INH SCH ×3 (01:50→12:54)
[2022-03-15 06:07] LABS: BASOPHILS % 0.1 % (0.0-1.0); HEMATOCRIT 27.7 % (34.2-44.1); HEMOGLOBIN 9.7 g/dL (12.0-16.0); LYMPHOCYTES # (AUTO) 2.4 (1.0-3.2); LYMPHOCYTES % 21.2 % (18.0-39.1); MEAN CORPUSCULAR VOLUME 82.7 fL (81-99); MONOCYTES # (AUTO) 0.6 (0.2-0.8); NEUTROPHILS # (AUTO) 8.2 (2.1-6.9); NEUTROPHILS % 73.1 % (38.7-80.0); PLATELET COUNT 229 x10e3/uL (140-360); RED BLOOD COUNT 3.35 x10e6/uL (3.6-5.1); RED CELL DISTRIBUTION WIDTH 13.6 % (11.7-14.4)
[2022-03-15 06:47] LABS: ANION GAP 13.1 mmol/L (8-16); CREATININE, SERUM 2.37 mg/dL (0.57-1.11); POTASSIUM 4.1 mmol/L (3.5-5.1)
[2022-03-15] MEDS: SALMETEROL/FLUTICASONE 250/50 INH SCH (07:03)
[2022-03-15] MEDS: BENZONATATE 100 MG CAP PO SCH ×3 (08:27→21:11)
[2022-03-15] MEDS: DULOXETINE HCL 30 MG DELAYED RELEASE PO SCH (08:28)
[2022-03-15] MEDS: LORATADINE 10 MG TAB PO SCH (08:28)
[2022-03-15] MEDS: NIFEDIPINE CR 30 MG TAB PO SCH ×3 (08:29→21:12)
[2022-03-15] MEDS: ZINC SULFATE 50 MG CAP PO SCH (08:29)
[2022-03-15] MEDS: ASPIRIN 81 MG CHEW TAB PO SCH (08:29)
[2022-03-15] MEDS: CHLORTHALIDONE 25 MG TAB PO SCH (08:30)
[2022-03-15] MEDS: CARVEDILOL 3.125 MG TAB PO SCH ×2 (08:30→17:23)
[2022-03-15] MEDS: AZITHROMYCIN 250 MG TAB PO SCH (08:30)
[2022-03-15] MEDS: FAMOTIDINE 20 MG/2 ML VIAL IV SCH ×2 (08:31→17:23)
[2022-03-15] MEDS: ASCORBIC ACID 500 MG TAB PO SCH ×2 (08:31→17:24)
[2022-03-15] MEDS: DEXAMETHASONE 4 MG TAB PO SCH (08:31)
[2022-03-15] MEDS: LIDOCAINE 4% PATCH TP SCH (08:32)
[2022-03-15] MEDS: HYDRALAZINE HCL 100 MG TABLET PO SCH (08:33)
[2022-03-15] MEDS: HYDRALAZINE HCL 25 MG TAB PO SCH ×2 (12:18→17:24)
[2022-03-15] MEDS: DEXTROSE 5%/0.45% SOD CHL 1,000 ML IV SCH ×2 (12:19→21:12)
[2022-03-15] MEDS: ENOXAPARIN SOD INJ 40 MG/0.4 ML SYR SC SCH (17:24)
[2022-03-15] MEDS: MONTELUKAST SODIUM 10 MG TAB PO SCH (21:11)
[2022-03-15] MEDS: ATORVASTATIN 20 MG TAB PO SCH (21:11)
[2022-03-15] MEDS: GABAPENTIN 300 MG CAP PO SCH (21:12)
[2022-03-16] VITALS (7 sets, daily range): BP systolic 131–192; BP diastolic 64–84
[2022-03-16] MEDS: ACETAMINOPHEN 325 MG TAB PO PRN (00:02)
[2022-03-16] MEDS: HYDRALAZINE HCL 25 MG TAB PO SCH ×4 (00:03→16:55)
[2022-03-16] MEDS: HYDRALAZINE HCL 20 MG/ML VIAL IV PRN (05:04)
[2022-03-16] MEDS: DEXTROSE 5%/0.45% SOD CHL 1,000 ML IV SCH ×2 (05:04→12:02)
[2022-03-16 06:20] LABS: BASOPHILS % 0.1 % (0.0-1.0); HEMATOCRIT 27.4 % (34.2-44.1); HEMOGLOBIN 9.7 g/dL (12.0-16.0); LYMPHOCYTES # (AUTO) 2.5 (1.0-3.2); LYMPHOCYTES % 24.8 % (18.0-39.1); MEAN CORPUSCULAR HGB CONC 35.4 g/dL (31-35); MEAN CORPUSCULAR VOLUME 81.8 fL (81-99); MONOCYTES # (AUTO) 0.6 (0.2-0.8); MONOCYTES % 6.1 % (4.4-11.3); NEUTROPHILS % 68.3 % (38.7-80.0); PLATELET COUNT 221 x10e3/uL (140-360); RED BLOOD COUNT 3.35 x10e6/uL (3.6-5.1)
[2022-03-16] MEDS: CARVEDILOL 3.125 MG TAB PO SCH ×2 (06:26→16:57)
[2022-03-16 07:08] LABS: ALBUMIN/GLOBULIN RATIO 0.9 (0.8-2.0); ANION GAP 10.7 mmol/L (8-16); CALCIUM 8.7 mg/dL (8.4-10.2); CREATININE, SERUM 2.33 mg/dL (0.57-1.11); POTASSIUM 3.7 mmol/L (3.5-5.1)
[2022-03-16] MEDS: DULOXETINE HCL 30 MG DELAYED RELEASE PO SCH (08:36)
[2022-03-16] MEDS: BENZONATATE 100 MG CAP PO SCH ×2 (08:37→14:30)
[2022-03-16] MEDS: AZITHROMYCIN 250 MG TAB PO SCH (08:37)
[2022-03-16] MEDS: ASCORBIC ACID 500 MG TAB PO SCH ×2 (08:37→16:56)
[2022-03-16] MEDS: DEXAMETHASONE 4 MG TAB PO SCH (08:37)
[2022-03-16] MEDS: ASPIRIN 81 MG CHEW TAB PO SCH (08:38)
[2022-03-16] MEDS: NIFEDIPINE CR 30 MG TAB PO SCH (08:38)
[2022-03-16] MEDS: LORATADINE 10 MG TAB PO SCH (08:38)
[2022-03-16] MEDS: LIDOCAINE 4% PATCH TP SCH (08:38)
[2022-03-16] MEDS: FAMOTIDINE 20 MG/2 ML VIAL IV SCH ×2 (08:39→16:56)
[2022-03-16] MEDS: ZINC SULFATE 50 MG CAP PO SCH (08:39)
[2022-03-16] MEDS: SALMETEROL/FLUTICASONE 250/50 INH SCH (10:58)
[2022-03-16] MEDS: ALBUTEROL SULFATE HFA 8GM INHALATION AEROSOL INH SCH ×2 (10:58→13:00)
[2022-03-16] MEDS: ENOXAPARIN SOD INJ 40 MG/0.4 ML SYR SC SCH (16:55)
== END 2022-03-16 20:33 | disposition home or self-care (01) | DRG 178 ==
LOC: FSED 13:49 → ERHOLD 14:14 → MED/SURG3 15:50 → OBSVTOIN 03-13 08:13
PROVIDERS: ADMIT Family Medicine; ATTEND Family Medicine
PROC: 3E0DX3Z Introduction of Anti-inflammatory into Mouth and Pharynx, External Approach (ICD-10-PCS; principal; 2022-03-14)
DX: U07.1 COVID-19 (principal); N17.9 Acute kidney failure, unspecified; N39.0 Urinary tract infection, site not specified; Z68.44 Body mass index [BMI] 60.0-69.9, adult; I16.0 Hypertensive urgency; I12.9 Hypertensive chronic kidney disease with stage 1 through stage 4 chronic kidney disease, or unspecified chronic kidney disease; I25.10 Atherosclerotic heart disease of native coronary artery without angina pectoris; Z95.5 Presence of coronary angioplasty implant and graft; N18.32 Chronic kidney disease, stage 3b; E86.0 Dehydration; R11.2 Nausea with vomiting, unspecified; J44.9 Chronic obstructive pulmonary disease, unspecified; M19.90 Unspecified osteoarthritis, unspecified site; R62.7 Adult failure to thrive; R91.1 Solitary pulmonary nodule; G62.9 Polyneuropathy, unspecified
CPT/HCPCS: 36415; 71045; 71250; 74176; 76770; 80048; 80053; 81003; 82550; 82553; 84484; 84550; 85025; 93005; 94799; 99284; G0378; J0360; J0456; J0696; J1100; J1650; J2405; J7040; J7042; J7050; J7121

== ENCOUNTER 2022-11-26 12:15 | Emergency (ER) | payer MEDICARE, OTHER ==
[~2022-11-26] VITALS: Ht 149.9 cm; Wt 93.0 kg
== END 2022-11-26 14:00 | disposition home or self-care (01) ==
LOC: FSED 12:33
DX: R50.9 Fever, unspecified (principal); J18.9 Pneumonia, unspecified organism; R05.9 Cough, unspecified; I10 Essential (primary) hypertension; N28.9 Disorder of kidney and ureter, unspecified; E78.5 Hyperlipidemia, unspecified; J45.909 Unspecified asthma, uncomplicated
CPT/HCPCS: 71046; 80053; 81003; 82553; 84484; 85025; 99284